=== PATIENT | male | born 1945 | race Caucasian/White ===

== ENCOUNTER 2018-10-04 13:56 | Day surgery (SDC) | payer MEDICARE ==
[2012-10-27 15:26] VITALS: BP 156/92
[2018-10-04] MEDS ORDERED: Depo-Medrol 40 MG/ML IM ONE (13:57)
[2018-10-04] MEDS ORDERED: Xylocaine 1% Vial 30 ML PF IJ ONE (13:57)
[2018-10-04] MEDS ORDERED: Sodium Chloride 0.9(Preservative Free) 10 ML IJ ONE (13:57)
--- NOTE | 2018-10-04 16:33 | XRAY ---
36 seconds fluoroscopy time in surgery for right L4-S1 RANJANA.
--- NOTE | 2018-10-05 08:34 | XRAY ---
Indication: Right L4-L5 RANJANA. Intraoperative fluoroscopy was provided for 36 seconds. 2 digital spot images submitted for interpretation demonstrates posterior needle tips projecting over the expected course of the right L4-L5 nerve roots. Small amount of contrast injected for needle tip placement. Correlate with intraoperative findings/report.
== END 2018-10-04 15:50 | disposition home or self-care (01) ==
LOC: SDC-PAIN 13:56
PROVIDERS: ATTEND Psychiatry & Neurology Pain Medicine
DX: M54.16 Radiculopathy, lumbar region (principal); K21.9 Gastro-esophageal reflux disease without esophagitis; Z79.899 Other long term (current) drug therapy
CPT/HCPCS: 72100; 77003; J1030; J2001

== ENCOUNTER 2018-11-15 10:30 | Day surgery (SDC) | payer MEDICARE ==
[2012-10-27 15:26] VITALS: BP 156/92
[2018-11-15] MEDS ORDERED: Xylocaine-Mpf 2% 5 Ml Vial IJ ONE (10:31)
[2018-11-15] MEDS ORDERED: Depo-Medrol 40 MG/ML IM ONE (10:31)
[2018-11-15] MEDS ORDERED: DIPRIVAN 200 MG/20 ML IV ONE (11:18)
[2018-11-15] MEDS ORDERED: Ketamine HCl 50 MG/ML ONE (11:18)
--- NOTE | 2018-11-15 12:52 | XRAY ---
Indication: Bilateral L4-S1 MBB. Intraoperative fluoroscopy was provided for 6 seconds. Single digital spot image submitted for interpretation demonstrates posterior needle tips projecting over the expected course of the left and right L4-S1 nerve roots. Correlate with intraoperative findings/report.
--- NOTE | 2018-11-15 13:47 | XRAY ---
6 seconds fluoroscopy time in surgery for bilateral L4-S1 MBB.
[2018-11-15] MEDS ORDERED: Lactated Ringers 1,000 ML IV ONE (15:53)
== END 2018-11-15 11:48 | disposition home or self-care (01) ==
LOC: SDC-PAIN 10:30
PROVIDERS: ATTEND Psychiatry & Neurology Pain Medicine
DX: M47.816 Spondylosis without myelopathy or radiculopathy, lumbar region (principal); K21.9 Gastro-esophageal reflux disease without esophagitis; Z79.899 Other long term (current) drug therapy
CPT/HCPCS: 72020; 77002; J1030; J2704

== ENCOUNTER 2019-09-12 11:48 | Day surgery (SDC) | payer MEDICARE ==
[2012-10-27 15:26] VITALS: BP 156/92
[~2019-09-12 11:48] MED LIST: DIPRIVAN 200 MG/20 ML IV ONE; Ketamine HCl 50 MG/ML ONE
[2019-09-12] MEDS ORDERED: Marcaine 0.5% SDV 10 ML IJ ONE (11:49)
[2019-09-12] MEDS ORDERED: Depo-Medrol 40 MG/ML IM ONE (11:49)
--- NOTE | 2019-09-12 14:20 | XRAY ---
Indication: Bilateral L4-S1 MBB. Intraoperative fluoroscopy was provided for 11 seconds. Single digital spot image submitted for interpretation demonstrates posterior needle tips projecting over the expected course of the left and right L4-S1 nerve roots. Correlate with intraoperative findings/report.
--- NOTE | 2019-09-12 14:22 | XRAY ---
11 seconds fluoroscopy time in surgery for bilateral L4-S1 MBB.
[2019-09-12] MEDS ORDERED: Lactated Ringers 1,000 ML IV ONE (16:37)
== END 2019-09-12 13:31 | disposition home or self-care (01) ==
LOC: SDC-PAIN 11:48
PROVIDERS: ATTEND Psychiatry & Neurology Pain Medicine
DX: M47.816 Spondylosis without myelopathy or radiculopathy, lumbar region (principal); K21.9 Gastro-esophageal reflux disease without esophagitis; Z79.899 Other long term (current) drug therapy
CPT/HCPCS: 64493; 64494; 72020; 77002; J1030; J2704

== ENCOUNTER 2020-08-13 14:35 | Day surgery (SDC) | payer MEDICARE ==
[2012-10-27 15:26] VITALS: BP 156/92
[2020-08-13] MEDS ORDERED: BUPIVACAINE 0.5% VIAL IJ ONE (14:36)
[2020-08-13] MEDS ORDERED: Lactated Ringers 1,000 ML IV ONE (15:59)
[2020-08-13] MEDS ORDERED: DIPRIVAN 200 MG/20 ML IV ONE (16:25)
--- NOTE | 2020-08-13 17:36 | XRAY ---
Indication: Bilateral L4-S1 MBB. Intraoperative fluoroscopy provided for 15 seconds. Single digital spot image submitted for interpretation demonstrates posterior needle tips projecting over the expected left and right L4-S1 nerve roots. Correlate with intraoperative findings/report.
--- NOTE | 2020-08-14 09:11 | XRAY ---
15 seconds fluoroscopy time in surgery for bilateral L4-S1 MBB.
== END 2020-08-13 16:49 | disposition home or self-care (01) ==
LOC: SDC-PAIN 14:35
PROVIDERS: ATTEND Psychiatry & Neurology Pain Medicine
DX: M47.816 Spondylosis without myelopathy or radiculopathy, lumbar region (principal); F32.9 Major depressive disorder, single episode, unspecified; K21.9 Gastro-esophageal reflux disease without esophagitis; Z79.899 Other long term (current) drug therapy
CPT/HCPCS: 64493; 64494; 72020; 77002; J2704

== ENCOUNTER 2020-09-17 12:50 | Day surgery (SDC) | payer MEDICARE ==
[2012-10-27 15:26] VITALS: BP 156/92
[2020-09-17] MEDS ORDERED: BUPIVACAINE 0.5% VIAL IJ ONE (12:51)
[2020-09-17] MEDS ORDERED: Xylocaine 1% Vial 30 ML PF IJ ONE (12:51)
[2020-09-17] MEDS ORDERED: Depo-Medrol 40 MG/ML IM ONE (12:51)
[2020-09-17] MEDS ORDERED: DIPRIVAN 200 MG/20 ML IV ONE ×2 (14:06→14:07)
--- NOTE | 2020-09-17 15:01 | XRAY ---
Indication: Right L4-S1 RFA. Intraoperative fluoroscopy provided for 20 seconds. 3 digital spot images submitted for interpretation demonstrates posterior needle tips projecting over the expected right L4-S1 nerve roots. Correlate with intraoperative findings/report.
--- NOTE | 2020-09-17 15:21 | XRAY ---
20 seconds fluoroscopy time in surgery for right L4-S1 RFA.
[2020-09-17] MEDS ORDERED: Lactated Ringers 1,000 ML IV ONE (15:34)
== END 2020-09-17 14:35 | disposition home or self-care (01) ==
LOC: SDC-PAIN 12:50
PROVIDERS: ATTEND Psychiatry & Neurology Pain Medicine
DX: M47.816 Spondylosis without myelopathy or radiculopathy, lumbar region (principal); Z79.899 Other long term (current) drug therapy
CPT/HCPCS: 64635; 64636; 72100; 77002; 99100; J1030; J2001; J2704

== ENCOUNTER 2020-10-01 12:54 | Day surgery (SDC) | payer MEDICARE ==
[2012-10-27 15:26] VITALS: BP 156/92
[2020-10-01] MEDS ORDERED: BUPIVACAINE 0.5% VIAL IJ ONE (12:55)
[2020-10-01] MEDS ORDERED: Depo-Medrol 40 MG/ML IM ONE (12:55)
[2020-10-01] MEDS ORDERED: Xylocaine 1% Vial 30 ML PF IJ ONE (12:55)
[2020-10-01] MEDS ORDERED: DIPRIVAN 200 MG/20 ML IV ONE (14:35)
--- NOTE | 2020-10-01 15:24 | XRAY ---
Indication: Left L4-S1 RFA. Intraoperative fluoroscopy provided for 17 seconds. 3 digital spot images submitted for interpretation demonstrates posterior needle tips projecting over the expected left L4-S1 nerve roots. Correlate with intraoperative findings/report.
[2020-10-01] MEDS ORDERED: Lactated Ringers 1,000 ML IV ONE (15:56)
--- NOTE | 2020-10-01 16:45 | XRAY ---
17 seconds fluoroscopy time in surgery for left L4-S1 RFA.
== END 2020-10-01 15:05 | disposition home or self-care (01) ==
LOC: SDC-PAIN 12:54
PROVIDERS: ATTEND Psychiatry & Neurology Pain Medicine
DX: M47.817 Spondylosis without myelopathy or radiculopathy, lumbosacral region (principal); Z79.899 Other long term (current) drug therapy
CPT/HCPCS: 64635; 64636; 72100; 77002; J1030; J2001; J2704